=== PATIENT | male | born 1995 | race Caucasian/White ===

== ENCOUNTER → 2016-07-19 | Outpatient (CLI) | payer OTHER ==
[~2016-07-19] MED LIST: MOTRIN800 MG PO; OMEPRAZOLE D/R20 MG PO; PROTONIX40 MG PO
[2016-07-19 15:24] LABS: HEMATOCRIT 48.5 % (42.0-52.0); HEMOGLOBIN 16.6 g/dl (14.0-18.0); MEAN CELL VOLUME 90.8 fl (80.0-94.0); MEAN CORPUSCULAR HGB 31.1 pg (27.0-31.0); MEAN CORPUSCULAR HGB CONC 34.2 g/dl (33.0-37.0); MEAN PLATELET VOLUME 8.9 fl (9.6-12.3); RED BLOOD COUNT 5.34 10*6/uL (4.50-5.90); RED CELL DISTRI WIDTH 12.1 % (0-14.5); WHITE BLOOD COUNT 9.4 10*3/uL (4.8-10.8)
[2016-07-19 15:53] LABS: ALKALINE PHOSPHATASE 74 U/L (45-117); BILIRUBIN, TOTAL 0.6 mg/dl (0.2-1.0); BUN 13 mg/dl (7-24); CARBON DIOXIDE 28 mmol/L (21-32); CHLORIDE 106 mmol/L (98-107); CHOLESTEROL 110 mg/dL (<200); EST GLOM FILT AFRICAN AMERICAN > 60 ml/min; GLUCOSE 82 mg/dL (65-99); HDL CHOLESTEROL 29 mg/dl (40-60); LDL CHOLESTEROL 20 mg/dL (9-159); POTASSIUM 4.1 mmol/L (3.5-5.1); SGOT/AST 11 IU/L (3-35); SGPT/ALT 24 U/L (12-78); SODIUM 142 mmol/L (136-145); TRIGLYCERIDES 307 mg/dl (<150); VLDL CHOLESTEROL 61 mg/dL (6-40)
== END | disposition home or self-care (01) ==
LOC: LAB 14:34
PROVIDERS: Family Medicine
DX: Z13.220 Encounter for screening for lipoid disorders (principal); R06.02 Shortness of breath; R53.83 Other fatigue; E74.00 Glycogen storage disease, unspecified; F41.1 Generalized anxiety disorder; E55.9 Vitamin D deficiency, unspecified; R06.2 Wheezing

== ENCOUNTER 2016-07-24 22:23 | Emergency (ER) | payer OTHER ==
[~2016-07-24] VITALS: Ht 157.4 cm; Wt 58.5 kg
[2016-07-24] MEDS ORDERED: ZANTAC 150150 MG PO (22:31)
[2016-07-24] MEDS ORDERED: Flovent 220 M220 MCG INH (22:32)
[2016-07-25 00:49] VITALS: BP 114/68
[2016-07-25] MEDS ORDERED: ATIVAN1 MG PO (01:24)
== END 2016-07-25 01:36 | disposition home or self-care (01) ==
LOC: ED 22:23
DX: F41.1 Generalized anxiety disorder (principal); F43.0 Acute stress reaction; K21.9 Gastro-esophageal reflux disease without esophagitis; Z79.899 Other long term (current) drug therapy

== ENCOUNTER → 2017-06-22 | Outpatient (CLI) | payer OTHER ==
[~2017-06-22] MED LIST changes: +ATIVAN1 MG PO; +Flovent 220 M220 MCG INH; +ZANTAC 150150 MG PO
== END | disposition home or self-care (01) ==
LOC: LAB 08:08
DX: G40.909 Epilepsy, unspecified, not intractable, without status epilepticus (principal)

== ENCOUNTER → 2017-09-27 | Outpatient (CLI) | payer OTHER ==
[2017-09-28 16:08] LABS: NICKEL 071571 None Detected ug/L (0.6-7.5)
[2017-10-02 18:08] LABS: MANGANESE WHOLE BLOOD 7.7 ug/L (8.0-18.7)
== END | disposition home or self-care (01) ==
LOC: LAB 15:54
PROVIDERS: Family Medicine
DX: T78.40XA Allergy, unspecified, initial encounter (principal); M79.1 Myalgia; R51 Headache

== ENCOUNTER → 2017-10-15 | Outpatient (CLI) | payer OTHER ==
[2017-10-15 16:45] LABS: FREE T4 1.14 ng/dl (0.76-1.46)
[2017-10-15 16:51] LABS: THYROID STIM HORMONE (HS) 2.27 uIU/ml (0.358-4.75)
== END | disposition home or self-care (01) ==
LOC: LAB 15:56
PROVIDERS: Internal Medicine Endocrinology, Diabetes & Metabolism
DX: G40.909 Epilepsy, unspecified, not intractable, without status epilepticus (principal); R25.2 Cramp and spasm; R61 Generalized hyperhidrosis; R94.6 Abnormal results of thyroid function studies

== ENCOUNTER → 2017-10-17 | Outpatient (CLI) | payer OTHER ==
[2017-10-20 16:06] LABS: VMA, URINE 24 HR 1.8 mg/24 hr (0.0-7.5)
== END | disposition home or self-care (01) ==
LOC: LAB 14:24
PROVIDERS: Student in an Organized Health Care Education/Training Program
DX: G40.909 Epilepsy, unspecified, not intractable, without status epilepticus (principal); R61 Generalized hyperhidrosis; R25.2 Cramp and spasm

== ENCOUNTER → 2018-01-15 | Outpatient (CLI) | payer OTHER ==
[2018-01-15 16:00] LABS: HEMATOCRIT 51.4 % (42.0-52.0); HEMOGLOBIN 17.8 g/dl (14.0-18.0); MEAN CELL VOLUME 89.9 fl (80.0-94.0); MEAN CORPUSCULAR HGB 31.1 pg (27.0-31.0); MEAN CORPUSCULAR HGB CONC 34.6 g/dl (33.0-37.0); MEAN PLATELET VOLUME 9.3 fl (9.6-12.3); RED BLOOD COUNT 5.72 10*6/uL (4.50-5.90); RED CELL DISTRI WIDTH 11.8 % (0-14.5); WHITE BLOOD COUNT 8.3 10*3/uL (4.8-10.8)
[2018-01-15 16:14] LABS: ALBUMIN 4.5 gm/dl (3.1-4.5); ALKALINE PHOSPHATASE 85 U/L (45-117); BUN 13 mg/dl (7-24); CHLORIDE 107 mmol/L (98-107); CREATININE 1.03 mg/dL (0.70-1.30); POTASSIUM 4.5 mmol/L (3.5-5.1); SGOT/AST 26 IU/L (3-35); SGPT/ALT 39 U/L (12-78); SODIUM 137 mmol/L (136-145); TOTAL PROTEIN 8.4 gm/dL (6.4-8.2)
[2018-01-15 16:18] LABS: CPK 125 U/L (39-308)
== END | disposition home or self-care (01) ==
LOC: LAB 15:36
PROVIDERS: Family Medicine
DX: K21.9 Gastro-esophageal reflux disease without esophagitis (principal); M62.838 Other muscle spasm

== ENCOUNTER → 2019-06-18 | Outpatient (CLI) | payer OTHER ==
[2019-06-18 15:19] LABS: HEMATOCRIT 50.2 % (42.0-52.0); HEMOGLOBIN 17.2 g/dl (14.0-18.0); MEAN CELL VOLUME 89.5 fl (80.0-94.0); MEAN CORPUSCULAR HGB 30.7 pg (27.0-31.0); MEAN CORPUSCULAR HGB CONC 34.3 g/dl (33.0-37.0); MEAN PLATELET VOLUME 9.2 fl (9.6-12.3); RED BLOOD COUNT 5.61 10*6/uL (4.50-5.90); RED CELL DISTRI WIDTH 11.6 % (0-14.5); WHITE BLOOD COUNT 6.1 10*3/uL (4.8-10.8)
[2019-06-18 15:50] LABS: ALBUMIN 4.4 gm/dl (3.1-4.5); ALKALINE PHOSPHATASE 82 U/L (45-117); BUN 11 mg/dl (7-24); CHLORIDE 110 mmol/L (98-107); CHOLESTEROL 177 mg/dL (<200); CREATININE 1.13 mg/dL (0.70-1.30); HDL CHOLESTEROL 32 mg/dl (40-60); LDL CHOLESTEROL 111 mg/dL (9-159); POTASSIUM 4.1 mmol/L (3.5-5.1); SGOT/AST 22 IU/L (3-35); SGPT/ALT 51 U/L (12-78); SODIUM 141 mmol/L (136-145); TOTAL PROTEIN 7.8 gm/dL (6.4-8.2); TRIGLYCERIDES 172 mg/dl (<150); VLDL CHOLESTEROL 34 mg/dL (6-40)
== END | disposition home or self-care (01) ==
LOC: LAB 14:35
PROVIDERS: Family Medicine
DX: I10 Essential (primary) hypertension (principal); R42 Dizziness and giddiness; R51 Headache

== ENCOUNTER 2021-09-25 15:14 | Emergency (ER) | payer OTHER ==
[~2021-09-25] VITALS: Ht 160 cm; Wt 72.6 kg
[2021-09-25 15:20] VITALS: BP 127/69
[2021-09-25] MEDS ORDERED: COLACE100 MG PO (17:50)
[2021-09-25] MEDS ORDERED: PREPARATION H1 EAC1 R (17:50)
== END 2021-09-25 17:36 | disposition home or self-care (01) ==
LOC: ED 15:14
DX: K64.9 Unspecified hemorrhoids (principal)

== ENCOUNTER → 2024-07-01 | Outpatient (CLI) | payer OTHER ==
[~2024-07-01] MED LIST changes: +COLACE100 MG PO; +PREPARATION H1 EAC1 R
[2024-07-01 16:29] LABS: HEMATOCRIT 45.3 % (42.0-52.0); MEAN CELL VOLUME 90.1 fl (80.0-94.0); MEAN CORPUSCULAR HGB 31.2 pg (27.0-31.0); MEAN CORPUSCULAR HGB CONC 34.7 g/dl (33.0-37.0); RED BLOOD COUNT 5.03 10*6/uL (4.50-5.90); RED CELL DISTRI WIDTH 11.5 % (0-14.5); WHITE BLOOD COUNT 8.2 10*3/uL (4.8-10.8)
[2024-07-01 16:50] LABS: ALKALINE PHOSPHATASE 80 U/L (46-116); BUN 12 mg/dl (9-23); CHLORIDE 103 mmol/L (98-107); CHOLESTEROL 186 mg/dL (<200); POTASSIUM 3.9 mmol/L (3.4-5.1); SGPT/ALT 50 U/L (5-49); TOTAL PROTEIN 7.5 gm/dL (6.0-8.0); TRIGLYCERIDES 655 mg/dl (<150)
[2024-07-01 16:53] LABS: VITAMIN D, 25-HYDROXY 22.9 ng/mL (30-100)
== END | disposition home or self-care (01) ==
LOC: LAB 15:59
PROVIDERS: ATTEND Family Medicine
DX: E78.00 Pure hypercholesterolemia, unspecified (principal); K21.9 Gastro-esophageal reflux disease without esophagitis; E55.9 Vitamin D deficiency, unspecified; R53.83 Other fatigue

== ENCOUNTER → 2024-07-08 | Outpatient (CLI) | payer OTHER | END | disposition home or self-care (01) | LOC: LAB 15:21 | PROVIDERS: ATTEND Family Medicine | DX: R21 Rash and other nonspecific skin eruption (principal); L29.0 Pruritus ani; M79.10 Myalgia, unspecified site; R07.9 Chest pain, unspecified ==